=== PATIENT | male | born 1990 | race Two or more races ===

== ENCOUNTER 2020-06-21 07:38 | Day surgery (SDC) | payer OTHER ==
[~2020-06-21] VITALS: Ht 177.8 cm; Wt 86.2 kg
[2020-06-21] VITALS (12 sets, daily range): BP systolic 128–165; BP diastolic 73–92
[~2020-06-21 07:38] MED LIST: ceFAZolin 1gm IVPB IVPB ONE; celeBREX 200mg Cap **SURGERY PATIENTS ONLY ORAL ONE; oxyCONTIN 20mg tab ORAL ONE
--- NOTE | 2020-06-21 08:06 | Pre-Procedure Note/Attestation ---
Pre-Procedure Note/Attestation Complete Prior to Procedure Planned Procedure: right Procedure Narrative: ankle orif Indications for Procedure Pre-Operative Diagnosis: right anle medial malleolus frascture Attestation I attest that I discussed the nature of the procedure; its benefits; risks and complications; and alternatives (and the risks and benefits of such alternatives), prior to the procedure, with the patient (or the patient's legal sales representative [employer]). I attest that, if there was a reasonable possibility of needing a blood transfusion, the patient (or the patient's legal sales representative girls[employer] apparel) was given the [facility] standardized written summary, pursuant to the Mario Alvin Blood Safety Act ([place] Health and Safety Code # 1645, as amended). I attest that I re-evaluated the patient just prior to the surgery and that there has been no change in the patient's H&P, except as documented below: Cuco Benjamin MD Jun 21, 2020 08:06
--- NOTE | 2020-06-21 08:07 | Operative Note - PDOC ---
Operative Note Operative Note Pre-op Diagnosis: right anle medial malleolus frascture Procedure: see op report Post-op Diagnosis: same as pre-op plus Operative Findings: consistent w/pre-op dx studies Anesthesia: regional Specimen: none Complications: none Condition: stable Estimated Blood Loss: none Implant(s) used?: Yes Cuco Benjamin MD Jun 21, 2020 08:07
[2020-06-21] MEDS ORDERED: Tylenol #3 tab (300mg/30mg) ORAL PRN (08:15)
[2020-06-21] MEDS ORDERED: HYDROcodone/Acetamin 5/325 tab ORAL PRN (08:15)
[2020-06-21] MEDS ORDERED: HYDROmorphone 1mg/ml Carpuject SUBQ PRN (08:15)
[2020-06-21] MEDS ORDERED: oxyCONTIN 20mg tab ORAL ONE (08:22)
[2020-06-21] MEDS ORDERED: fentaNYL 100 mcg/2 mL IV ONE (10:18)
[2020-06-21] MEDS ORDERED: Midazolam 2mg/2ml Inj ONE (10:18)
[2020-06-21] MEDS ORDERED: Bacitracin 50000 Units Vial ONE (10:29)
[2020-06-21] MEDS ORDERED: Bupivacaine 0.25% Inj 30ml INJ ONE (10:29)
[2020-06-21] MEDS ORDERED: NeoSporin Gu Irrig 1ml Amp IRRIG ONE (10:29)
[2020-06-21] MEDS ORDERED: NS Irrig 1000ml ONE (11:00)
[2020-06-21] MEDS ORDERED: Sterile Water Irrig 1000ml IRRIG ONE (11:00)
[2020-06-21] MEDS ORDERED: LR 1000ml ONE (11:00)
[2020-06-21] MEDS ORDERED: Morphine Sulfate 10mg/ml Inj ONE (11:25)
[2020-06-21] MEDS ORDERED: Hydromorphone 0.5mg/0.5ml inj IVP PRN (12:00)
[2020-06-21] MEDS ORDERED: Acetaminophen (Non formulary) 100 ML IV ONE (12:00)
[2020-06-21] MEDS ORDERED: Metoclopramide 10mg/2ml Inj IVP PRN (12:00)
[2020-06-21] MEDS ORDERED: fentaNYL 100 mcg/2 mL IV PRN (12:00)
--- NOTE | 2020-06-21 12:00 | Anethesia Preoperative Eval ---
Anesthesia Pre-op PMH/ROS General Date of Evaluation: Jun 21, 2020 Time of Evaluation: 11:00 Anesthesiologist: danielle ASA Score: ASA 2 Mallampati Score Class I : Soft palate, uvula, fauces, pillars visible Class II: Soft palate, uvula, fauces visible Class III: Soft palate, base of uvula visible Class IV: Only hard plate visible Mallampati Classification: Class II Surgeon: caden Diagnosis: ankle fx Surgical Procedure: right ankle ORIF Anesthesia History: none Family History: no anesthesia problems Allergies: Coded Allergies: No Known Allergies (Unverified , 06/20/20) Medications: see eMAR Patient NPO?: Yes NPO Date: Jun 21, 2020 NPO Time: 00:01 Past Medical History Cardiovascular: Denies: HTN, CAD, PA, valve dz, arrhythmia, other Pulmonary: Denies: asthma, COPD, EVELYNE, other Gastrointestinal/Genitourinary: Denies: GERD, CRI, ESRD, other Neurologic/Psychiatric: Denies: dementia, CVA, depression/anxiety, TIA, other Endocrine: Denies: DM, hypothyroidism, steroids, other HEENT: Denies: cataract (L), cataract (R), glaucoma, CREEK (L), CREEK (R), other Hematology/Immune: Denies: anemia, DVT, bleeding disorder, other Musculoskeletal/Integumentary: Denies: OA, RA, DJD, DDD, edema, other Anesthesia Pre-op Phys. Exam Physician Exam Last Vital Signs Date Time Temp Pulse Resp B/P (MAP) Pulse Ox O2 Delivery O2 Flow Rate FiO2 06/21/20 08:25 Room Air 06/21/20 08:04 98.0 88 18 128/82 99 Constitutional: NAD Neurologic: CN 2-12 intact Cardiovascular: RRR Gastrointestinal: S/NT/ND Airway Exam Mallampati Classification 2 Mallampati Score: Class II MO: full ROM: full Dentures: no upper, no lower Anesthesia Pre-op A/P Studies Pre-op Studies: EKG - sr Risk Assessment & Plan Assessment: covid neg Plan: general/peripheral nerve block Status Change Before Surgery: No Pre-Antibiotics Drug: ancef Given Within 1 Hr of Incision: Yes Time Given: 10:55 Magaly Shirley CRNA Jun 21, 2020 12:00
[2020-06-21] MEDS ORDERED: Ropivacaine 5mg/ml Vial 20ml INJ ONE (12:05)
[2020-06-21] MEDS ORDERED: Lidocaine 1% MPF 10mg/ml 5ml ONE (12:15)
--- NOTE | 2020-06-21 14:04 | Immediate Post-Op Evaluation ---
Immediate Post-Op Evalulation Immediate Post-Op Evalulation Procedure: right ankle orif Date of Evaluation: Jun 21, 2020 Time of Evaluation: 12:35 Blood Pressure Systolic: 116 Blood Pressure Diastolic: 60 Pulse Rate: 100 Respiratory Rate: 14 O2 Sat by Pulse Oximetry: 99 Temperature (Fahrenheit): 97.9 Nausea: No Vomiting: No Complications none Patient Status: awake, reacts, patent Hydration Status: adequate Drug: ancef Given Within 1 Hr of Incision: Yes Time Given: 10:55 Magaly Shirley CRNA Jun 21, 2020 14:04
--- NOTE | 2020-06-21 14:09 | 48 Hour Post Anesthesia Eval ---
Post Anesthesia Evaluation Procedure: right ankle orif Date of Evaluation: Jun 21, 2020 Time of Evaluation: 14:09 Blood Pressure Systolic: 155 0: 85 Pulse Rate: 70 Respiratory Rate: 14 O2 Sat by Pulse Oximetry: 98 Airway: patent Nausea: No Vomiting: No If pain is > 6 Comment: 0 Hydration Status: adequate Cardiopulmonary Status: stable Mental Status/LOC: patient returned to baseline Post-Anesthesia Complications: none Follow-up care needed: N/A Magaly Shirley CRNA Jun 21, 2020 14:09
--- NOTE | 2020-06-21 17:30 | Operative Note - Dictated ---
DATE OF OPERATION: 06/21/2020 PREOPERATIVE DIAGNOSIS: Right displaced medial malleolus fracture. POSTOPERATIVE DIAGNOSIS: Right displaced medial malleolus fracture. PROCEDURES: 1. Right ankle arthrotomy, intra-articular debridement, removal of intra-articular loose body. 2. Osteotomy, medial malleolus nonunion. 3. Open reduction and internal fixation, medial malleolus with two cannulated partially-threaded cannulated screws. SURGEON: Cuco Benjamin MD. ANESTHESIA: Popliteal with general. INDICATION FOR PROCEDURE: The patient is a pleasant gentleman, who sustained a medial malleolus fracture. He was diagnosed with medial malleolus fracture. He subsequently was treated conservatively, presented to me and there was displacement of the ankle joint space. Given the concern of displacement, we discussed with him that normally good anatomic reduction will be consideration for open reduction and internal fixation. Risks, limitations, expectations, and complications of procedure including infection, nerve and vessel damage, risk of anesthesia, medical complications, DVT, PE, mortality risks. All questions were addressed. DESCRIPTION OF PROCEDURE: After informed consent obtained, the patient was brought to the operating room. The patient was placed under general anesthesia. Right femoral adductor block was placed. Right leg was prepped and draped in a sterile manner. Time-out was performed. At this point, examination under anesthesia was performed. At this point, there was clearly well clear widening of the medial joint space with medial displacement of the fracture fragment. The articular surface was somewhat congruent. External rotation drawer test did not show any widening of the syndesmosis. At this point, it was felt that closed reduction and percutaneous pinning would not be applicable, particularly in light of the fact that there was almost 21 days since the injury. Therefore, a standard posterior ankle tc skin incision was marked out. Skin was incised. Saphenous vein was mobilized anteriorly. The periosteum along the fracture site was identified. Using x-ray, osteotome were then placed through the fracture site and osteotomy medial malleolus was performed. The callus formation was debrided down to good cancellous bone. All soft tissue and callus was debrided down to healthy bleeding bone. The medial talus was visualized. There was some adhesions along the medial gutter. Care was taken to remove some loose intra-articular adhesions to allow mobilization of the medial malleolus fracture. The medial malleolus fracture was in one piece, which was . Reduction maneuver was performed and two K-wires were then placed. Initially, one of the K-wires was posterior. However, given the size of the nature if attempt to keep the screws anterior, would have been a compromised fixation. Therefore, two K-wire was placed under direct visualization. AP and lateral imaging showed the reduction in the medial mortise and anatomic reduction of the medial malleolus. On the lateral trajectory, the anterior screw was slightly posterior, but acceptable. At this point, the two partially threaded 40 mm screws were placed with good purchase in the bone. Each were countersink underneath the bone in an attempt to prevent any secondary irritation, need for future removal. Using magnification, the articular margin was followed and was congruous. Visually from the outside, the anterior and medial aspect of the fracture site was reduced. At this point, the wound was copiously irrigated. The soft tissue was approximated with 2-0 Vicryl, 3-0 Vicryl, and Monocryl. A Dermabond dressing was applied. The patient was awoken and taken to recovery room after posterior splint was applied. ESTIMATED BLOOD LOSS: None. COMPLICATIONS: None. SPECIMENS: None. IMPLANTS: Include two 40 partially-threaded screws. Cuco Benjamin M.D. DR: ROJAS JOB#: [id number] CC:
--- NOTE | 2020-06-21 17:48 | Diagnostic Imaging Report ---
Indication: Pain, trauma Technique: 3 views of the right ankle Comparison: none Findings: Intraoperative images document surgical repair of a medial malleolar fracture using 2 surgical nails Impression: Intraoperative imaging, as described
[2020-06-21] MEDS ORDERED: D5 1/2NS 1,000 ML IV SCH (21:00)
== END 2020-06-21 15:00 | disposition home or self-care (01) ==
LOC: SUR 07:38
DX: S82.51XA Displaced fracture of medial malleolus of right tibia, initial encounter for closed fracture (principal); X58.XXXA Exposure to other specified factors, initial encounter; Y92.9 Unspecified place or not applicable
CPT/HCPCS: 27620; 27720; 73600; 76000; J0131; J0690; J2250; J2270; J2405; J2704; J2765; J2795; J3010; J3490; J7120; U0004